=== PATIENT | female | born 1980 | race Caucasian/White ===

== ENCOUNTER 2021-06-14 19:07 | Emergency (ER) | payer OTHER ==
[~2021-06-14 19:07] MED LIST: BENTYL10 MG PO; NORCO 5-325 TA1 EACH PO; ZOFRAN8 MG PO
[2021-06-14 23:32] LABS: BASOPHIL 1.1 % (0-2); EOSINOPHIL 3.4 % (0-5); HCT 41.7 % (37.0-47.0); HGB 13.9 g/dl (12.5-16.0); LYMPHOCYTE 40.3 % (15-48); MCH 31.7 pg (25.0-31.0); MCHC 33.3 g/dL (32.0-36.0); MCV 95.2 fL (78.0-100.0); MONOCYTE 6.2 % (0-12); MPV 10.6 fL (6.0-9.5); NEUTROPHIL 48.7 % (41-80); NRBC 0; PLT 191 K/uL (150-400); RBC 4.38 M/uL (4.20-5.40); RDW 12.9 % (11.5-14.0)
[2021-06-14 23:55] LABS: BUN/CREAT RATIO (CALC) 29.6 RATIO; CREATININE 0.71 mg/dL (0.51-0.95); POTASSIUM 3.7 mmol/L (3.5-5.1)
[2021-06-15] MEDS ORDERED: ONDANSETRON ODT4 MG PO (02:29)
[2021-06-15] MEDS ORDERED: AUGMENTIN 875-1 EACH PO (02:29)
== END 2021-06-15 02:45 | disposition home or self-care (01) ==
LOC: FER 19:07
PROVIDERS: Internal Medicine
DX: J32.9 Chronic sinusitis, unspecified (principal); K13.70 Unspecified lesions of oral mucosa; F17.210 Nicotine dependence, cigarettes, uncomplicated
CPT/HCPCS: 36415; 70487; 80048; 85025; J0696; Q9967

== ENCOUNTER 2021-08-20 09:02 | Emergency (ER) | payer OTHER ==
[~2021-08-20 09:02] MED LIST changes: +AUGMENTIN 875-1 EACH PO; +ONDANSETRON ODT4 MG PO
== END 2021-08-20 10:36 | disposition home or self-care (01) ==
LOC: FER 09:02
DX: S80.12XA Contusion of left lower leg, initial encounter (principal); S90.812A Abrasion, left foot, initial encounter; W00.0XXA Fall on same level due to ice and snow, initial encounter; Y92.009 Unspecified place in unspecified non-institutional (private) residence as the place of occurrence of the external cause
CPT/HCPCS: 73590; 73610; 73630

== ENCOUNTER 2022-02-19 11:00 | Emergency (ER) | payer OTHER | END 2022-02-19 12:38 | disposition home or self-care (01) | LOC: FER 11:00 | DX: T20.16XA Burn of first degree of forehead and cheek, initial encounter (principal); T26.00XA Burn of unspecified eyelid and periocular area, initial encounter; F17.200 Nicotine dependence, unspecified, uncomplicated; X08.8XXA Exposure to other specified smoke, fire and flames, initial encounter; Y93.89 Activity, other specified; Y99.0 Civilian activity done for income or pay | CPT/HCPCS: 99283 ==